=== PATIENT | male | born 1990 | race Caucasian/White ===

== ENCOUNTER 2017-02-11 02:26 | Emergency (ER) | payer SELFPAY ==
[~2017-02-11] VITALS: Ht 187.9 cm; Wt 84.4 kg
[2017-02-11] MEDS ORDERED: CIPROFLOXACIN 110 ML OPH (02:46)
== END 2017-02-11 03:41 | disposition home or self-care (01) ==
LOC: ED 02:26
DX: H10.33 Unspecified acute conjunctivitis, bilateral (principal); F17.200 Nicotine dependence, unspecified, uncomplicated